=== PATIENT | female | born 1990 | race Caucasian/White ===

== ENCOUNTER → 2017-02-19 | Outpatient (CLI) | payer BC, OTHER ==
[~2017-02-19] MED LIST: COLACE 100MG C100 MG PO
[2017-02-19 12:03] LABS: HEMOGLOBIN 12.2 gm/dl (12.3-15.3); RED BLOOD COUNT 4.3 M/UL (4.00-5.10)
== END ==
LOC: GENOP 11:23
PROVIDERS: Obstetrics & Gynecology
DX: Z01.812 Encounter for preprocedural laboratory examination (principal); O34.219 Maternal care for unspecified type scar from previous cesarean delivery; Z3A.00 Weeks of gestation of pregnancy not specified
CPT/HCPCS: 36415; 81001; 85025; J7120

== ENCOUNTER 2017-02-20 06:51 | Inpatient (IN) | payer BC, SELFPAY ==
[~2017-02-20] VITALS: Ht 162.6 cm; Wt 98.9 kg
[2017-02-21 03:07] LABS: HEMOGLOBIN 10.6 gm/dl (12.3-15.3)
[2017-02-22] MEDS ORDERED: COLACE 100MG C100 MG PO (14:06)
== END 2017-02-22 08:15 | disposition home or self-care (01) | DRG 766 ==
LOC: OB 06:51
PROVIDERS: ADMIT Obstetrics & Gynecology
PROC: 10D00Z1 Extraction of Products of Conception, Low, Open Approach (ICD-10-PCS; principal; 2017-02-20 09:00)
PROC: 3E0234Z Introduction of Serum, Toxoid and Vaccine into Muscle, Percutaneous Approach (ICD-10-PCS; 2017-02-21)
DX: O34.219 Maternal care for unspecified type scar from previous cesarean delivery (principal); Z3A.39 39 weeks gestation of pregnancy; Z37.0 Single live birth; O99.214 Obesity complicating childbirth; Z68.37 Body mass index [BMI] 37.0-37.9, adult; Z79.899 Other long term (current) drug therapy; Z23 Encounter for immunization
CPT/HCPCS: 36415; 82800; 85014; 85018; 90707; 90715; C9113; J0690; J2274; J2300; J2370; J2405; J2590; J2765; J3010; J7120

== ENCOUNTER → 2022-04-11 | Outpatient (CLI) | payer BC | LOC: RAD 16:43 | DX: R06.00 Dyspnea, unspecified (principal) | CPT/HCPCS: 71046 ==

== ENCOUNTER → 2022-06-05 | Outpatient (CLI) | payer BC | LOC: HEART 5 05-16 08:00 | DX: R06.00 Dyspnea, unspecified (principal); Z86.16 Personal history of COVID-19 | CPT/HCPCS: 93306 ==